=== PATIENT | female | born 1945 | race Two or more races ===

== ENCOUNTER 2019-08-12 20:40 | Emergency (ER) | payer OTHER, MEDICAID ==
[~2019-08-12] VITALS: Ht 144.8 cm; Wt 66.2 kg
[~2019-08-12 20:40] MED LIST: ALL100T GT; ASPI-404 PO; CALC-386 OR; GEMF600T7 PO; LEV100T GT; LIS20T GT; METF-370 PO; METFPOW XX
[2019-08-12 21:35] LABS: Urine Bacteria FEW /hpf (None Seen); Urine Blood Negative /uL (Negative); Urine Hyaline Cast FEW /lpf (0 - 2); Urine Mucus FEW (None Seen); Urine Specific Gravity 1.016 (1.001-1.035); Urine WBC 17 /hpf (0 - 5)
[2019-08-12 23:08] LABS: Basophils # (auto) 0.1 uL; Basophils % (auto) 0.9 % (0.0-2.0); Eosinophils # (auto) 0.3 uL; Eosinophils % (auto) 3.1 % (0.0-7.0); Hematocrit 37.6 % (36.0-46.0); Hemoglobin 12.6 g/dL (12.2-16.2); Lymphocytes # (auto) 2.6 uL; Lymphocytes % (auto) 30.4 % (10.0-50.0); Mean Corpuscular Hemoglobin 31.5 pg (28.0-32.0); Mean Corpuscular Hgb Conc. 33.6 g/dL (32.0-36.0); Mean Corpuscular Volume 93.7 fL (80.0-100.0); Monocytes # (auto) 0.6 uL; Monocytes % (auto) 6.9 % (0.0-12.0); Neutrophils % (auto) 58.7 % (37.0-80.0); Nucleated Red Blood Cells % 0.1 %; Platelet Count (auto) 224 10^3/uL (140-450); Red Blood Cells 4.01 10^6/uL (4.0-5.20); Red Cell Distribution Width 13.6 % (11.8-14.3); White Blood Cell 8.6 10^3/uL (4.4-10.8)
[2019-08-12 23:30] LABS: Albumin 3.8 g/dL (3.4-5.0); BUN/Creatinine Ratio 18.4; Calcium 9.3 mg/dL (8.5-10.1); Potassium 3.9 mmol/L (3.5-5.1)
[2019-08-12 23:33] LABS: Bilirubin, Total 0.5 mg/dL (0.2-1.0); Total Protein 8.1 g/dL (6.4-8.2)
[2019-08-13 01:50] VITALS: BP 157/76
[2019-08-13] MEDS ORDERED: LEVOFLOXACIN 250 MG TAB PO ONE (02:30)
== END 2019-08-13 03:26 | disposition home or self-care (01) ==
LOC: ER 20:41
DX: J20.9 Acute bronchitis, unspecified (principal); E11.9 Type 2 diabetes mellitus without complications; E78.5 Hyperlipidemia, unspecified; I10 Essential (primary) hypertension
CPT/HCPCS: 36415; 71046; 80053; 81001; 85025

== ENCOUNTER 2020-01-01 13:57 | Inpatient (IN) | payer OTHER, MEDICAID ==
[~2020-01-01] VITALS: Ht 149.9 cm; Wt 68.0 kg
[2020-01-01] MEDS ORDERED: LEVO75TA6 (14:21)
[2020-01-01] MEDS ORDERED: BECL80AE11 (14:21)
[2020-01-01] MEDS ORDERED: ALBU108A5 (14:21)
[2020-01-01] MEDS ORDERED: ATOR20TA50 (14:21)
[2020-01-01] MEDS ORDERED: LOSA100T25 (14:21)
[2020-01-01] MEDS ORDERED: AMLO5TAB15 (14:21)
[2020-01-01] MEDS ORDERED: MONT10TA34 (14:21)
[2020-01-01 14:26] LABS: Basophils # (auto) 0.1 10 ^3/uL (0-0.2); Basophils % (auto) 0.8 % (0.0-2.0); Eosinophils # (auto) 0.2 10 ^3/uL (0-0.8); Eosinophils % (auto) 3.4 % (0.0-7.0); Hemoglobin 12.8 g/dL (12.2-16.2); Lymphocytes # (auto) 2.6 10 ^3/uL (0.4-5.4); Lymphocytes % (auto) 36.6 % (10.0-50.0); Mean Corpuscular Hemoglobin 31.7 pg (28.0-32.0); Mean Corpuscular Hgb Conc. 33.8 g/dL (32.0-36.0); Mean Corpuscular Volume 93.9 fL (80.0-100.0); Monocytes # (auto) 0.5 10 ^3/uL (0-1.3); Monocytes % (auto) 6.9 % (0.0-12.0); Neutrophils # (auto) 3.8 10 ^3/uL (1.6-8.6); Neutrophils % (auto) 52.3 % (37.0-80.0); Nucleated Red Blood Cells % 0.1 %; Platelet Count (auto) 203 10^3/uL (140-450); Red Blood Cells 4.05 10^6/uL (4.0-5.20); Red Cell Distribution Width 13.6 % (11.8-14.3); White Blood Cell 7.2 10^3/uL (4.4-10.8)
[2020-01-01 14:57] LABS: Albumin 3.7 g/dL (3.4-5.0); Calcium 9.3 mg/dL (8.5-10.1); Potassium 3.5 mmol/L (3.5-5.1)
[2020-01-01 15:00] LABS: Bilirubin, Total 0.6 mg/dL (0.2-1.0); Total Protein 8.1 g/dL (6.4-8.2)
[2020-01-01 15:03] LABS: BUN/Creatinine Ratio 24.4
[2020-01-01] MEDS ORDERED: cefTRIAXone 1GM/50ML D5W 50 ML IV ONE (17:15)
[2020-01-01 20:31] LABS: INR 0.96 (0.9-1.15); Partial Thromboplastin Time 33.7 sec (23.64-32.05)
[2020-01-01] MEDS ORDERED: ACETAMINOPHEN 325 MG TAB PO PRN (21:15)
[2020-01-01] MEDS ORDERED: TEMAZEPAM 15 MG CAP PO PRN (21:15)
[2020-01-01] MEDS ORDERED: DEXTROSE (50%) 50ML SYRG IV PRN (21:15)
[2020-01-01] MEDS ORDERED: ONDANSETRON HCL 4 MG/2 ML VIAL IV PRN (21:15)
[2020-01-01 21:22] VITALS: BP 128/70
[2020-01-01] MEDS: MONTELUKAST SODIUM 10 MG TAB PO SCH (22:25)
[2020-01-01] MEDS: ACCU-CHEK COMFORT CURVE STRIP VI SCH (22:25)
[2020-01-01] MEDS: ATORVASTATIN 20 MG TAB PO SCH (22:25)
[2020-01-01] MEDS: FAMOTIDINE 20 MG TAB PO SCH (22:25)
[2020-01-01] MEDS: InsuLIN REG 1unit/0.01ml Soln (100units/ml) SC SCH (22:27)
[2020-01-01] MEDS: ALBUTEROL SULF 2.5 MG/0.5ML(0.5%) NEB SOLN NEB SCH (23:28)
[2020-01-02] MEDS ORDERED: guaiFENesin-DM 100/10mg/5ml SYR PO PRN (01:00)
[2020-01-02 05:00] VITALS: BP 110/62
[2020-01-02] MEDS: ACCU-CHEK COMFORT CURVE STRIP VI SCH ×4 (06:31→22:05)
[2020-01-02] MEDS: InsuLIN REG 1unit/0.01ml Soln (100units/ml) SC SCH ×4 (06:31→22:05)
[2020-01-02] MEDS: LEVOTHYROXINE SODIUM 25 MCG TAB PO SCH (06:31)
[2020-01-02] MEDS: ALBUTEROL SULF 2.5 MG/0.5ML(0.5%) NEB SOLN NEB SCH ×3 (07:52→19:25)
[2020-01-02 09:00] VITALS: BP 106/64
[2020-01-02] MEDS: cefTRIAXone 1GM/50ML D5W 50 ML IV SCH (09:48)
[2020-01-02] MEDS: FAMOTIDINE 20 MG TAB PO SCH ×2 (09:54→22:03)
[2020-01-02] MEDS: ALLOPURINOL 100 MG TAB PO SCH (09:54)
[2020-01-02] MEDS: amLODIPine BESYLATE 5 MG TAB PO SCH (09:55)
[2020-01-02] MEDS: LISINOPRIL 20 MG TAB PO SCH (09:55)
[2020-01-02 13:00] VITALS: BP 112/59
[2020-01-02 17:00] VITALS: BP 123/56
[2020-01-02 22:00] VITALS: BP 115/55
[2020-01-02] MEDS: ATORVASTATIN 20 MG TAB PO SCH (22:03)
[2020-01-02] MEDS: MONTELUKAST SODIUM 10 MG TAB PO SCH (22:03)
[2020-01-03] VITALS (7 sets, daily range): BP systolic 95–118; BP diastolic 50–68
[2020-01-03] MEDS: ALBUTEROL SULF 2.5 MG/0.5ML(0.5%) NEB SOLN NEB SCH ×4 (00:39→20:33)
[2020-01-03] MEDS: LEVOTHYROXINE SODIUM 25 MCG TAB PO SCH (06:58)
[2020-01-03] MEDS: InsuLIN REG 1unit/0.01ml Soln (100units/ml) SC SCH ×3 (07:00→17:52)
[2020-01-03] MEDS: ACCU-CHEK COMFORT CURVE STRIP VI SCH ×4 (07:42→22:00)
[2020-01-03] MEDS ORDERED: MAGNESIUM OXIDE 400 MG TAB PO ONE (08:30)
[2020-01-03] MEDS: FAMOTIDINE 20 MG TAB PO SCH ×2 (09:42→22:00)
[2020-01-03] MEDS: cefTRIAXone 1GM/50ML D5W 50 ML IV SCH (09:42)
[2020-01-03] MEDS: ALLOPURINOL 100 MG TAB PO SCH (09:42)
[2020-01-03] MEDS: LISINOPRIL 20 MG TAB PO SCH (09:43)
[2020-01-03] MEDS: amLODIPine BESYLATE 5 MG TAB PO SCH (09:43)
[2020-01-03] MEDS ORDERED: methylPREDNISolone SOD SUCC 40 MG/ML VL IV ONE (12:15)
[2020-01-03] MEDS ORDERED: AZITHROMYCIN 250 MG TAB PO ONE (14:00)
[2020-01-03] MEDS: ATORVASTATIN 20 MG TAB PO SCH (22:00)
[2020-01-03] MEDS: MONTELUKAST SODIUM 10 MG TAB PO SCH (22:00)
[2020-01-03] MEDS: methylPREDNISolone SOD SUCC 40 MG/ML VL IV SCH (22:00)
[2020-01-04] VITALS (7 sets, daily range): BP systolic 96–125; BP diastolic 45–70
[2020-01-04] MEDS: InsuLIN REG 1unit/0.01ml Soln (100units/ml) SC SCH ×5 (00:17→22:00)
[2020-01-04] MEDS: ALBUTEROL SULF 2.5 MG/0.5ML(0.5%) NEB SOLN NEB SCH ×4 (00:25→19:37)
[2020-01-04] MEDS: ACCU-CHEK COMFORT CURVE STRIP VI SCH ×4 (06:37→22:00)
[2020-01-04] MEDS: LEVOTHYROXINE SODIUM 25 MCG TAB PO SCH (07:01)
[2020-01-04] MEDS: cefTRIAXone 1GM/50ML D5W 50 ML IV SCH (09:26)
[2020-01-04] MEDS: methylPREDNISolone SOD SUCC 40 MG/ML VL IV SCH ×2 (09:27→21:55)
[2020-01-04] MEDS: FAMOTIDINE 20 MG TAB PO SCH ×2 (09:28→22:01)
[2020-01-04] MEDS: LISINOPRIL 20 MG TAB PO SCH (09:29)
[2020-01-04] MEDS: AZITHROMYCIN 250 MG TAB PO SCH (09:30)
[2020-01-04] MEDS: ALLOPURINOL 100 MG TAB PO SCH (09:31)
[2020-01-04] MEDS: amLODIPine BESYLATE 5 MG TAB PO SCH (09:31)
[2020-01-04 11:39] LABS: Basophils # (auto) 0 10 ^3/uL (0-0.2); Basophils % (auto) 0.1 % (0.0-2.0); Eosinophils # (auto) 0 10 ^3/uL (0-0.8); Hematocrit 40.4 % (36.0-46.0); Hemoglobin 13.3 g/dL (12.2-16.2); Lymphocytes # (auto) 1.4 10 ^3/uL (0.4-5.4); Lymphocytes % (auto) 11.2 % (10.0-50.0); Monocytes # (auto) 0.3 10 ^3/uL (0-1.3); Monocytes % (auto) 2.8 % (0.0-12.0); Neutrophils # (auto) 10.7 10 ^3/uL (1.6-8.6); Neutrophils % (auto) 85.9 % (37.0-80.0); Nucleated Red Blood Cells % 0.1 %; Red Blood Cells 4.31 10^6/uL (4.0-5.20); White Blood Cell 12.5 10^3/uL (4.4-10.8)
[2020-01-04 11:40] LABS: Mean Corpuscular Hemoglobin 30.8 pg (28.0-32.0); Mean Corpuscular Hgb Conc. 32.9 g/dL (32.0-36.0); Mean Corpuscular Volume 93.7 fL (80.0-100.0); Platelet Count (auto) 259 10^3/uL (140-450); Red Cell Distribution Width 13.7 % (11.8-14.3)
[2020-01-04 12:05] LABS: BUN/Creatinine Ratio 20.4; Calcium 9.8 mg/dL (8.5-10.1); Potassium 3.6 mmol/L (3.5-5.1)
[2020-01-04] MEDS: ATORVASTATIN 20 MG TAB PO SCH (22:04)
[2020-01-05] MEDS: ALBUTEROL SULF 2.5 MG/0.5ML(0.5%) NEB SOLN NEB SCH ×4 (01:04→19:15)
[2020-01-05] MEDS: ACETYLCYSTEINE 10 %(100MG/ML) SOL 4ML NEB SCH ×4 (01:04→19:16)
[2020-01-05 05:00] VITALS: BP 100/63
[2020-01-05] MEDS: LEVOTHYROXINE SODIUM 25 MCG TAB PO SCH (06:22)
[2020-01-05] MEDS: InsuLIN REG 1unit/0.01ml Soln (100units/ml) SC SCH ×4 (06:44→22:00)
[2020-01-05] MEDS: ACCU-CHEK COMFORT CURVE STRIP VI SCH ×4 (06:51→22:52)
[2020-01-05 08:00] VITALS: BP 111/60
[2020-01-05] MEDS: methylPREDNISolone SOD SUCC 40 MG/ML VL IV SCH (09:53)
[2020-01-05] MEDS: ALLOPURINOL 100 MG TAB PO SCH (09:54)
[2020-01-05] MEDS: LISINOPRIL 20 MG TAB PO SCH (09:54)
[2020-01-05] MEDS: AZITHROMYCIN 250 MG TAB PO SCH (09:54)
[2020-01-05] MEDS: FAMOTIDINE 20 MG TAB PO SCH ×2 (09:54→22:53)
[2020-01-05] MEDS: amLODIPine BESYLATE 5 MG TAB PO SCH (09:54)
[2020-01-05] MEDS: cefTRIAXone 1GM/50ML D5W 50 ML IV SCH (10:00)
[2020-01-05 13:00] VITALS: BP 114/59
[2020-01-05 16:35] VITALS: BP 103/59
[2020-01-05 22:00] VITALS: BP 123/61
[2020-01-05] MEDS: ATORVASTATIN 20 MG TAB PO SCH (22:52)
[2020-01-06] MEDS: ACETYLCYSTEINE 10 %(100MG/ML) SOL 4ML NEB SCH ×5 (00:01→19:25)
[2020-01-06] MEDS: ALBUTEROL SULF 2.5 MG/0.5ML(0.5%) NEB SOLN NEB SCH ×5 (00:01→19:25)
[2020-01-06 05:00] VITALS: BP 111/65
[2020-01-06] MEDS: ACCU-CHEK COMFORT CURVE STRIP VI SCH ×4 (06:11→21:22)
[2020-01-06] MEDS: LEVOTHYROXINE SODIUM 25 MCG TAB PO SCH (06:11)
[2020-01-06] MEDS: InsuLIN REG 1unit/0.01ml Soln (100units/ml) SC SCH ×4 (06:11→21:22)
[2020-01-06 06:32] LABS: Basophils # (auto) 0 10 ^3/uL (0-0.2); Basophils % (auto) 0.1 % (0.0-2.0); Eosinophils # (auto) 0 10 ^3/uL (0-0.8); Eosinophils % (auto) 0.1 % (0.0-7.0); Hematocrit 36.1 % (36.0-46.0); Hemoglobin 12.2 g/dL (12.2-16.2); Lymphocytes # (auto) 3.4 10 ^3/uL (0.4-5.4); Lymphocytes % (auto) 24.8 % (10.0-50.0); Mean Corpuscular Hemoglobin 31.5 pg (28.0-32.0); Mean Corpuscular Hgb Conc. 33.7 g/dL (32.0-36.0); Mean Corpuscular Volume 93.4 fL (80.0-100.0); Monocytes # (auto) 0.8 10 ^3/uL (0-1.3); Monocytes % (auto) 5.5 % (0.0-12.0); Neutrophils # (auto) 9.5 10 ^3/uL (1.6-8.6); Neutrophils % (auto) 69.5 % (37.0-80.0); Platelet Count (auto) 228 10^3/uL (140-450); Red Blood Cells 3.87 10^6/uL (4.0-5.20); Red Cell Distribution Width 13.7 % (11.8-14.3); White Blood Cell 13.7 10^3/uL (4.4-10.8)
[2020-01-06 06:44] LABS: BUN/Creatinine Ratio 35.6; Calcium 9.1 mg/dL (8.5-10.1)
[2020-01-06 08:00] VITALS: BP 127/67
[2020-01-06] MEDS: cefTRIAXone 1GM/50ML D5W 50 ML IV SCH (08:22)
[2020-01-06] MEDS: amLODIPine BESYLATE 5 MG TAB PO SCH (10:04)
[2020-01-06] MEDS: FAMOTIDINE 20 MG TAB PO SCH ×2 (10:04→21:20)
[2020-01-06] MEDS: LISINOPRIL 20 MG TAB PO SCH (10:04)
[2020-01-06] MEDS: AZITHROMYCIN 250 MG TAB PO SCH (10:04)
[2020-01-06] MEDS: ALLOPURINOL 100 MG TAB PO SCH (10:04)
[2020-01-06] MEDS: methylPREDNISolone SOD SUCC 40 MG/ML VL IV SCH (10:05)
[2020-01-06 12:00] VITALS: BP 103/62
[2020-01-06 17:00] VITALS: BP 121/57
[2020-01-06] MEDS: ATORVASTATIN 20 MG TAB PO SCH (21:20)
[2020-01-06 22:10] VITALS: BP 123/68
[2020-01-07] VITALS (7 sets, daily range): BP systolic 110–132; BP diastolic 54–66
[2020-01-07] MEDS: ALBUTEROL SULF 2.5 MG/0.5ML(0.5%) NEB SOLN NEB SCH ×5 (00:46→23:56)
[2020-01-07] MEDS: ACETYLCYSTEINE 10 %(100MG/ML) SOL 4ML NEB SCH ×4 (00:46→18:42)
[2020-01-07] MEDS: LEVOTHYROXINE SODIUM 25 MCG TAB PO SCH (06:15)
[2020-01-07] MEDS: InsuLIN REG 1unit/0.01ml Soln (100units/ml) SC SCH ×4 (06:16→22:12)
[2020-01-07] MEDS: ACCU-CHEK COMFORT CURVE STRIP VI SCH ×4 (06:17→22:16)
[2020-01-07] MEDS: ALLOPURINOL 100 MG TAB PO SCH (09:59)
[2020-01-07] MEDS: FAMOTIDINE 20 MG TAB PO SCH ×2 (09:59→22:14)
[2020-01-07] MEDS: AZITHROMYCIN 250 MG TAB PO SCH (10:00)
[2020-01-07] MEDS: LISINOPRIL 20 MG TAB PO SCH (10:00)
[2020-01-07] MEDS: amLODIPine BESYLATE 5 MG TAB PO SCH (10:00)
[2020-01-07] MEDS: methylPREDNISolone SOD SUCC 40 MG/ML VL IV SCH (12:08)
[2020-01-07] MEDS: cefTRIAXone 1GM/50ML D5W 50 ML IV SCH (12:08)
[2020-01-07] MEDS: ATORVASTATIN 20 MG TAB PO SCH (22:14)
[2020-01-08 05:00] VITALS: BP 111/63
[2020-01-08] MEDS: ALBUTEROL SULF 2.5 MG/0.5ML(0.5%) NEB SOLN NEB SCH ×2 (06:14→11:23)
[2020-01-08] MEDS: ACCU-CHEK COMFORT CURVE STRIP VI SCH ×2 (06:32→11:41)
[2020-01-08] MEDS: LEVOTHYROXINE SODIUM 25 MCG TAB PO SCH (06:32)
[2020-01-08] MEDS: InsuLIN REG 1unit/0.01ml Soln (100units/ml) SC SCH ×2 (06:32→11:30)
[2020-01-08 06:52] LABS: Basophils # (auto) 0 10 ^3/uL (0-0.2); Basophils % (auto) 0.1 % (0.0-2.0); Eosinophils # (auto) 0 10 ^3/uL (0-0.8); Eosinophils % (auto) 0.1 % (0.0-7.0); Hematocrit 35.4 % (36.0-46.0); Hemoglobin 11.9 g/dL (12.2-16.2); Lymphocytes # (auto) 2.9 10 ^3/uL (0.4-5.4); Mean Corpuscular Hemoglobin 31.5 pg (28.0-32.0); Mean Corpuscular Hgb Conc. 33.5 g/dL (32.0-36.0); Mean Corpuscular Volume 93.9 fL (80.0-100.0); Monocytes # (auto) 0.7 10 ^3/uL (0-1.3); Monocytes % (auto) 6.4 % (0.0-12.0); Neutrophils # (auto) 7.6 10 ^3/uL (1.6-8.6); Neutrophils % (auto) 67.4 % (37.0-80.0); Platelet Count (auto) 239 10^3/uL (140-450); Red Blood Cells 3.77 10^6/uL (4.0-5.20); Red Cell Distribution Width 13.6 % (11.8-14.3); White Blood Cell 11.2 10^3/uL (4.4-10.8)
[2020-01-08 07:09] LABS: Potassium 4.1 mmol/L (3.5-5.1)
[2020-01-08 07:14] LABS: BUN/Creatinine Ratio 33.3; Calcium 8.9 mg/dL (8.5-10.1)
[2020-01-08 09:00] VITALS: BP 119/60
[2020-01-08] MEDS: cefTRIAXone 1GM/50ML D5W 50 ML IV SCH (11:13)
[2020-01-08] MEDS: ALLOPURINOL 100 MG TAB PO SCH (11:13)
[2020-01-08] MEDS: AZITHROMYCIN 250 MG TAB PO SCH (11:13)
[2020-01-08] MEDS: FAMOTIDINE 20 MG TAB PO SCH (11:14)
[2020-01-08] MEDS: methylPREDNISolone SOD SUCC 40 MG/ML VL IV SCH (11:14)
[2020-01-08] MEDS: LISINOPRIL 20 MG TAB PO SCH (11:14)
[2020-01-08] MEDS: amLODIPine BESYLATE 5 MG TAB PO SCH (11:14)
[2020-01-08 13:00] VITALS: BP 131/73
[2020-01-08 14:39] VITALS: BP 119/60
== END 2020-01-08 15:35 | disposition home or self-care (01) | DRG 193 ==
LOC: ER 13:57 → OVERFLOW 13:58 → WEST WING 23:10
PROVIDERS: ADMIT Nurse Practitioner; ATTEND Internal Medicine Nephrology
DX: J18.9 Pneumonia, unspecified organism (principal); J96.01 Acute respiratory failure with hypoxia; J98.11 Atelectasis; E11.9 Type 2 diabetes mellitus without complications; E03.9 Hypothyroidism, unspecified; I10 Essential (primary) hypertension; G35 Multiple sclerosis; E78.5 Hyperlipidemia, unspecified; E66.9 Obesity, unspecified; Z68.30 Body mass index [BMI] 30.0-30.9, adult; Z77.22 Contact with and (suspected) exposure to environmental tobacco smoke (acute) (chronic); Z79.84 Long term (current) use of oral hypoglycemic drugs; Z83.3 Family history of diabetes mellitus; Z79.82 Long term (current) use of aspirin
CPT/HCPCS: 36415; 36600; 71045; 71046; 80048; 80053; 82805; 82962; 83735; 83880; 84443; 84484; 85025; 85379; 85610; 85730; 87804; 93005; 93306; 94640; 94667; 94668; 96365; 96366; 96375; G0378; J0696; J1815; J2405

== ENCOUNTER 2020-05-29 21:11 | Emergency (ER) | payer OTHER, MEDICAID ==
[~2020-05-29] VITALS: Ht 149.9 cm; Wt 66.2 kg
[~2020-05-29 21:11] MED LIST changes: +ALBU108A5; +AMLO5TAB15; -ASPI-404 PO; +ASPI-543 PO; +ATOR20TA50; +BECL80AE11; +LEVO75TA6; +LOSA100T25; +MONT10TA34
[2020-05-29 21:59] LABS: Urine Bacteria NONE SEEN /hpf (None Seen); Urine Blood Negative /uL (Negative); Urine Specific Gravity 1.024 (1.001-1.035); Urine WBC 2 /hpf (0 - 5)
[2020-05-29 22:16] LABS: Basophils # (auto) 0.1 10 ^3/uL (0-0.2); Basophils % (auto) 0.9 % (0.0-2.0); Eosinophils # (auto) 0.1 10 ^3/uL (0-0.8); Eosinophils % (auto) 0.6 % (0.0-7.0); Hematocrit 41.2 % (36.0-46.0); Hemoglobin 13.6 g/dL (12.2-16.2); Lymphocytes # (auto) 1.5 10 ^3/uL (0.4-5.4); Lymphocytes % (auto) 18.9 % (10.0-50.0); Mean Corpuscular Volume 94.1 fL (80.0-100.0); Monocytes # (auto) 0.5 10 ^3/uL (0-1.3); Monocytes % (auto) 6.2 % (0.0-12.0); Neutrophils # (auto) 5.8 10 ^3/uL (1.6-8.6); Neutrophils % (auto) 73.4 % (37.0-80.0); Nucleated Red Blood Cells % 0.1 %; Platelet Count (auto) 218 10^3/uL (140-450); Red Blood Cells 4.38 10^6/uL (4.0-5.20); Red Cell Distribution Width 13.4 % (11.8-14.3)
[2020-05-29 22:33] LABS: Albumin 4.3 g/dL (3.4-5.0); Calcium 9.8 mg/dL (8.5-10.1); Potassium 3.4 mmol/L (3.5-5.1)
[2020-05-29 22:36] LABS: BUN/Creatinine Ratio 20.2; Bilirubin, Total 1.2 mg/dL (0.2-1.0); Total Protein 8.6 g/dL (6.4-8.2)
[2020-05-29 23:14] VITALS: BP 137/80
[2020-05-30] MEDS ORDERED: MAGNESIUM CITRATE SOLUTION 300 ML BTL PO ONE (00:15)
== END 2020-05-30 00:15 | disposition home or self-care (01) ==
LOC: ER 21:12
DX: K59.00 Constipation, unspecified (principal)
CPT/HCPCS: 36415; 74176; 80053; 81001; 83690; 85025